=== PATIENT | female | born 1950 | race Two or more races ===

== ENCOUNTER → 2020-12-07 | Outpatient (CLI) | payer MEDICARE ==
[~2020-12-07] MED LIST: LOSA50TA39 PO; MELO-105 PO; OMEP40CA21 PO
== END | disposition home or self-care (01) ==
LOC: LAB 10:00
PROVIDERS: ATTEND Specialist
DX: Z01.812 Encounter for preprocedural laboratory examination (principal); Z20.822 Contact with and (suspected) exposure to COVID-19
CPT/HCPCS: C9803; U0003

== ENCOUNTER 2020-12-12 08:58 | Inpatient (IN) | payer MEDICARE, OTHER ==
[2020-12-12] MEDS ORDERED: ANESTHESIA TRAY IN PYXIS 1 EA TRAY MC ONE (09:15)
[2020-12-12] MEDS ORDERED: POLYMYXIN B SULFATE 500,000 UNITS ONE (09:19)
[2020-12-12] MEDS ORDERED: BUPIVACAINE 0.5 % PF 150 MG/30 ML VIAL ONE (09:20)
[2020-12-12] MEDS ORDERED: HYDROMORPHONE INJ 2 MG/ML DISP.SYRIN ONE (10:18)
[2020-12-12] MEDS ORDERED: FENTANYL PF 250MCG/5ML AMPUL ONE (10:18)
[2020-12-12] MEDS ORDERED: MIDAZOLAM HCL 2 MG/2ML VIAL ONE (10:19)
[2020-12-12] MEDS ORDERED: FAMOTIDINE/PF INJ 20 MG/2 ML VIAL IV ONE (10:19)
[2020-12-12] MEDS ORDERED: ROCURONIUM BROMIDE 50 MG/5 ML ONE (10:19)
[2020-12-12] MEDS ORDERED: BUPIVACAINE 0.25% 75 MG/30 ML VIAL ONE (10:20)
[2020-12-12] MEDS ORDERED: TRANEXAMIC ACID 3,000 MG in SODIUM CHLORIDE IRRIG SOLUTION 70 ML IR ONE (11:00)
[2020-12-12] MEDS ORDERED: diphenhydrAMINE HCL 25 MG CAPSULE PO PRN (11:30)
[2020-12-12] MEDS ORDERED: MAG HYDROX/AL HYDROX/SIMETH 30 ML UDC PO PRN (11:30)
[2020-12-12] MEDS ORDERED: ONDANSETRON HCL/PF 4 MG/2 ML VIAL IV PRN (11:30)
[2020-12-12] MEDS ORDERED: CLONIDINE HCL 0.1 MG TABLET PO PRN (11:30)
[2020-12-12] MEDS ORDERED: HYDROCODONE/APAP 10/325MG TABLET PO PRN (11:30)
[2020-12-12] MEDS ORDERED: ALPRAZOLAM 0.25 MG TABLET PO PRN (11:30)
[2020-12-12] MEDS ORDERED: DOCUSATE SODIUM 250 MG CAPSULE PO PRN (14:30)
[2020-12-12] MEDS ORDERED: ZOLPIDEM TARTRATE 5 MG TABLET PO PRN (14:30)
[2020-12-12] MEDS ORDERED: BISACODYL SUPP (10 MG) 10 MG/SUPP.RECT SUPP.RECT RC PRN (14:30)
[2020-12-12] MEDS ORDERED: SENNOSIDES 8.6 MG TABLET PO PRN (14:30)
[2020-12-12] MEDS ORDERED: ACETAMINOPHEN 325 MG TABLET PO PRN (15:00)
--- NOTE | 2020-12-12 15:05 | NUR ---
RN NOTE RECIEVED PATIENT BACK FROM SURGERY FOR A KNEE ARTHROPLASTY, SURGICAL SITE INTACT BANDAGED WITH ICE ON TOP. PT IS SLEEPING, VITALS TAKEN EVERY 15 MINS,
[2020-12-12] MEDS: HYDROMORPHONE 1 MG/1 ML DISP.SYRIN IM/IV/SC PRN (15:39)
[2020-12-12 16:00] VITALS: BP 141/73
[2020-12-12] MEDS ORDERED: Z GUARD REMEDY 2 OZ OINT TP PRN (16:30)
--- NOTE | 2020-12-12 19:30 | NUR ---
MS RN OPENING NOTES RECEIVED PT AWAKE IN BED, A/O X4. SHE DENIES ANY PAIN OR DISCOMFORT AT THIS TIME. IV ACCESS ON LH#20G INTACT/PATENT AND FLUSHES WELL. PT S/P L-TOTAL KNEE ARTHROPLASTY, WITH DRESSING C/D/I, WITH IMMOBILIZER IN PLACE. PT ABLE TO VERBALIZE ALL NEEDS. NO ACUTE DISTRESS NOTED. SAFETY MEASURES IN PLACE, BED IN LOWEST LOCKED POSITION, S/R UP X2, CALL LIGHT AND TABLE WITHIN EASY REACH. WILL CONTINUE TO MONITOR.
[2020-12-12 20:00] VITALS: BP 101/54
[2020-12-12] MEDS: ANCEF 1 GM/50 ML D5W IV SCH (20:32)
[2020-12-12] MEDS ORDERED: PANTOPRAZOLE 40 MG TABLET.DR PO SCH (22:00)
[2020-12-13] MEDS: IV LR 1000 ML 1,000 ML IV PRN ×2 (01:39→17:13)
[2020-12-13] MEDS: ANCEF 1 GM/50 ML D5W IV SCH (03:58)
[2020-12-13] MEDS: HYDROMORPHONE 1 MG/1 ML DISP.SYRIN IM/IV/SC PRN (04:43)
[2020-12-13 06:16] LABS: BASOPHILS % (AUTO) 0.1 % (0.0-2.0); HEMATOCRIT 36 % (33-45); HEMOGLOBIN 12.3 g/dL (11.5-14.8); LYMPHOCYTES # (AUTO) 1.2 K/uL (0.8-4.8); LYMPHOCYTES % (AUTO) 4.3 % (20.0-44.0); MEAN CORPUSCULAR HGB CONC 35 g/dl (31.0-36.0); MEAN CORPUSCULAR VOLUME 96 fL (82-100); MONOCYTES # (AUTO) 1.1 K/uL (0.1-1.30); MONOCYTES % (AUTO) 4.1 % (2.0-12.0); NEUTROPHILS % (AUTO) 91.5 % (43.0-81.0); PLATELET COUNT (AUTO) 255 K/uL (150-450); RED BLOOD CELL COUNT(AUTO) 3.69 MIL/uL (4.0-5.2); WHITE BLOOD COUNT (AUTO) 27.3 K/uL (4.3-11.0)
[2020-12-13 06:35] LABS: CALCIUM, SERUM 9.4 mg/dL (8.5-10.1); CREATININE 0.8 mg/dL (0.6-1.3); MAGNESIUM 1.8 mg/dL (1.8-2.4); POTASSIUM 4.2 mmol/L (3.5-5.1)
--- NOTE | 2020-12-13 06:51 | NUR ---
MS RN CLOSING NOTES PT RESTING IN BED, EASILY AROUSABLE TO STIMULI. A/O X4. DENIES ANY PAIN OR DISCOMFORT AT THIS TIME. ON ROOM AIR AND TOLERATING WELL. NO C/O SOB. FC INTACT, DRAINING WELL WITH CLEAR YELLOW URINE. DRESSING TO L-LEG C/D/I. IMMOBILIZER IN PLACE. POSITIONED PT FOR COMFORT. PT IN NO ACUTE DISTRESS. SAFETY MEASURES MAINTAINED, BED IN LOWEST LOCKED POSITION, S/R UP X2, CALL LIGHT AND TABLE WITHIN REACH.
[2020-12-13 08:00] VITALS: BP 124/64
[2020-12-13] MEDS ORDERED: ASPIRIN 325 MG TABLET PO SCH (09:00)
[2020-12-13] MEDS ORDERED: MELO-105 PO (09:13)
[2020-12-13] MEDS ORDERED: LOSA50TA39 PO (09:13)
[2020-12-13] MEDS ORDERED: OMEP40CA21 PO (09:13)
--- NOTE | 2020-12-13 09:30 | NUR ---
Opening notes: Received pt. awake in bed, responsive to staffs, no sign of distress noted, breathing is even and unlabored. Pt. ate breakfast and compliant on meds. Will continue to monitor for safety.
[2020-12-13] MEDS ORDERED: LOSARTAN POTASSIUM 50 MG TABLET PO SCH (15:00)
--- NOTE | 2020-12-13 15:07 | NUR ---
Hernandez Cath discontinued and pt. tolerated well. Addendum: 12/13/20 at 1508 by YASH MASSEY RN with 1600 cc urine output of clear yellow urine
[2020-12-13] MEDS: HYDROCODONE/APAP 5/325MG TABLET PO PRN ×2 (15:30→21:04)
[2020-12-13 16:00] VITALS: BP 134/60
--- NOTE | 2020-12-13 19:05 | NUR ---
Closing Notes: Pt. is awake in bed, no distress and will endorse to the next shift.
--- NOTE | 2020-12-13 19:15 | NUR ---
MS RN OPENING NOTES PT AWAKE, A/O X4, ABLE TO VERBALIZE ALL NEEDS. FAMILY AT BEDSIDE. SHE DENIES ANY PAIN OR DISCOMFORT AT THIS TIME. NO SOB. ON ROOM AIR AND TOLERATING WELL. IV ACCESS ON LH #20G INTACT/PATENT, FLUSHES WELL. PT S/P L-KNEE ARTHROPLASTY WITH DRESSING ON SITE C/D/I, AND IMMOBILIZER IN PLACE. PT IN NO ACUTE DISTRESS. WILL CONTINUE TO MONITOR.
[2020-12-13 20:00] VITALS: BP 151/78
--- NOTE | 2020-12-13 20:50 | NUR ---
RN NOTES AMBULANCE CAME AND READY TO PICK IP THE PATIENT,.. CALLED [facility] AND SPOKE TO REJI AND CLARIFY IF THE PATIENT IS LEAVING TONIGHT BECAUSE PER DAYSHIFT REPORT THERE'S NO AVAILABLE BED.. REJI (TABLE RUNNER) 9OF [facility] GAVE ME THE ROOM NUMBER, PATIENT WILL GO TO RM. 303
--- NOTE | 2020-12-13 21:00 | NUR ---
RN NOTES SPOKE TO PATIENT'S SON MARVIN WRIGHT AND INFORMED HIM THAT PATIENT WILL BE TRANSFER TO [facility]. PATIENT AGREED.
--- NOTE | 2020-12-13 21:15 | NUR ---
MS GEOLOGIC TECHNICIAN NOTES PT PICKED UP BY [facility] TWO PERSONNEL VIA GURNEY FOR TRANSFER TO [facility]. PT A/O X4, NO SOB, NO ACUTE DISTRESS. PT S/P L-KNEE ARTHROPLASTY WITH DRESSING C/D/I. PT DENIES ANY PAIN OR DISCOMFORT AT THIS TIME. HEALTH TEACHINGS AND MEDICATION TEACHINGS PROVIDED AND PT VERBALIZED UNDERSTANDING. FAMILY AWARE OF TRANSFER.
--- NOTE | 2020-12-13 21:45 | NUR ---
RN NOTES AMBULANCE CAME AND READY TO PICK IP THE PATIENT,.. CALLED [facility] AND SPOKE TO REJI AND CLARIFY IF THE PATIENT IS LEAVING TONIGHT BECAUSE PER DAYSHIFT REPORT THERE'S NO AVAILABLE BED.. REJI (PRODUCTION ARTIST) [facility]OF [facility] GAVE ME THE ROOM NUMBER, PATIENT WILL GO TO . 303 Addendum: 12/13/20 at 3 by ADRIANA HOFFMAN RN RIGHT TIME [id number]
== END 2020-12-13 21:15 | DRG 470 ==
LOC: DS 08:58 → MED 09:16
PROVIDERS: ADMIT Nurse Practitioner Family; ATTEND Nurse Practitioner Family
PROC: 0SRD0J9 Replacement of Left Knee Joint with Synthetic Substitute, Cemented, Open Approach (ICD-10-PCS; principal; 2020-12-12)
DX: M17.12 Unilateral primary osteoarthritis, left knee (principal); E78.5 Hyperlipidemia, unspecified; I10 Essential (primary) hypertension; D72.829 Elevated white blood cell count, unspecified; E66.9 Obesity, unspecified; F41.9 Anxiety disorder, unspecified; I25.10 Atherosclerotic heart disease of native coronary artery without angina pectoris; M81.0 Age-related osteoporosis without current pathological fracture
CPT/HCPCS: 36415; 80048-TC; 80061-TC; 83735-TC; 85025-TC; 88305-TC; 88311-TC; 97112-TC; 97116-TC; 97760-TC; A4217; C1713; C1776; G0378; J0690; J1170; J2250; J2405; J2704; J2765; J3010; J3490; J7050; J7060; J7120; L1830